=== PATIENT | male | born 1955 | race Caucasian/White ===

== ENCOUNTER 2017-03-19 22:29 | Emergency (ER) | payer MEDICARE, BC ==
[2017-03-19 22:46] VITALS: BP 130/64
--- NOTE | 2017-03-19 22:57 | EDM.PDOC ---
ED HPI GENERAL MEDICAL PROBLEM - General Chief Complaint: Upper Extremity Injury/Pain Stated Complaint: SHOULDER PAIN Time Seen by Provider: 03/19/17 22:51 Source of Information: Reports: Patient History Limitations: Reports: No Limitations - History of Present Illness INITIAL COMMENTS - FREE TEXT/NARRATIVE: This 62 yo male patient reports to the ED with a 2 day history of right shoulder and neck pain. The patient denies any acute injury or fall. The patient reports his symptoms started Thursday (03/17/17) and got much worse this evening. The patient reports he has not been seen in the clinic for these symptoms, but has been taking ibuprofen. The patient reports similar symptoms in his left shoulder years ago that went away on its own. 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 Right Clavicle Pain Score (Numeric/FACES): 10 - Related Data Allergies Allergy/AdvReac Type Severity Reaction Status Date / Time cephalexin Allergy Itching Verified 03/19/17 22:46 corn Allergy Rash Verified 03/19/17 22:46 doxycycline Allergy Rash Verified 03/19/17 22:46 fluconazole [From Diflucan] Allergy Rash Verified 03/19/17 22:46 house dust Allergy Shortness Verified 03/19/17 22:46 of Breath lorazepam [From Ativan] Allergy Rash Verified 03/19/17 22:46 Penicillins Allergy Rash Verified 03/19/17 22:46 tramadol HCl [From Ultram] Allergy Rash Verified 03/19/17 22:46 tree nut Allergy Shortness Verified 03/19/17 22:46 of Breath zolpidem tartrate Allergy Hallucinati Verified 03/19/17 22:46 [From Ambien] ons Home Meds: Home Meds ALPRAZolam [Xanax] 0.5 mg PO BID 08/01/13 [History] Albuterol [Proventil HFA] 2 puff INH Q4H PRN 08/01/13 [History] Albuterol [Proventil Neb Soln] 0.63 mg NEB Q4HRRT 08/01/13 [History] Aspirin [Adult Low Dose Aspirin EC] 81 mg PO BEDTIME 08/01/13 [History] Calcium Carbonate/Vitamin D3 [Calcium 600 + Vit D 400] 1 tab PO BEDTIME [History] Digoxin [Lanoxin] 250 mcg PO DAILY 08/01/13 [History] Diltiazem HCl [Diltiazem 24Hr ER] 360 mg PO DAILY 08/01/13 [History] Escitalopram [Lexapro] 20 mg PO DAILY 08/01/13 [History] Furosemide [Lasix] 40 mg PO ASDIRECTED PRN 08/01/13 [History] Metolazone [Zaroxolyn] 10 mg PO DAILY PRN 08/01/13 [History] Montelukast [Singulair] 10 mg PO BEDTIME 08/01/13 [History] Omeprazole [Prilosec] 20 mg PO DAILY 08/01/13 [History] traZODone HCl [Trazodone HCl] 50 mg PO BEDTIME 08/01/13 [History] Lidocaine/Prilocaine [Emla Cream] 1 squirt TOP ASDIRECTED PRN 03/12/15 [History] Albuterol/Ipratropium [DuoNeb 3.0-0.5 MG/3 ML] 1 vial INH Q4H 08/27/15 [History] Insulin Detemir [Levemir] 90 unit SUBCUT BEDTIME 09/17/15 [History] Insulin Aspart [NovoLOG] 22 units SQ TIDMEALS 01/21/16 [History] Sulfamethoxazole/Trimethoprim [Bactrim 400-80 MG] 2 tab PO BID PRN 11/10/16 [ History] Clotrimazole/Betamethasone Dip [Lotrisone Cream] 1 squirt TOP ASDIRECTED [History] Ipratropium [Atrovent] 1 vial INH Q4H 02/02/17 [History] Past Medical History HEENT History: Reports: Cataract, Hard of Hearing, Impaired Vision, Other (See Below) Other HEENT History: Mastoid infection. Chronic right eye infection (red/watery ) ? allergy related. Cardiovascular History: Reports: Afib, CAD, Heart Failure, High Cholesterol, Hypertension, SOB on Exertion, Other (See Below) Other Cardiovascular History: Vascular access/Port right chest Respiratory History: Reports: Asthma, Bronchitis, Recurrent, COPD, Pneumonia, Recurrent Other Respiratory History: Uses o2 at 3L per nc at all times Gastrointestinal History: Reports: GERD Genitourinary History: Reports: None Musculoskeletal History: Reports: Arthritis Neurological History: Reports: Neuropathy, Diabetic Psychiatric History: Reports: Anxiety, Depression Endocrine/Metabolic History: Reports: Diabetes, Type II Hematologic History: Reports: Other (See Below) Other Hematologic History: Common Variable immune Deficiency Immunologic History: Reports: Immunosuppression Oncologic (Cancer) History: Reports: None Dermatologic History: Reports: Psoriasis - Infectious Disease History Infectious Disease History: Reports: Other (See Below) Other Infectious Disease History: unknown - Past Surgical History Head Surgeries/Procedures: Reports: None HEENT Surgical History: Reports: Adenoidectomy, Cataract Surgery, Tonsillectomy GI Surgical History: Reports: None Male Surgical History: Reports: Circumcision Neurological Surgical History: Reports: None Oncologic Surgical History: Reports: None Dermatological Surgical History: Reports: None Social & Family History - Family History Family Medical History: Noncontributory - Tobacco Use Smoking Status *Q: Current Every Day Smoker Years of Tobacco use: 50 Packs/Tins Daily: 1 Used Tobacco, but Quit: Yes Month Tobacco Last Used: 2015 Second Hand Smoke Exposure: No - Caffeine Use Caffeine Use: Reports: Soda Other Caffeine Use: 6-8 12 OZ CANS - Alcohol Use Days Per Week of Alcohol Use: 0 Number of Drinks Per Day: 0 Total Drinks Per Week: 0 - Recreational Drug Use Recreational Drug Use: No Drug Use in Last 12 Months: No - Living Situation & Occupation Living situation: Reports: Occupation: Disabled Review of Systems - Review of Systems Review Of Systems: ROS reveals no pertinent complaints other than HPI. ED EXAM, GENERAL - Physical Exam Exam: See Below Exam Limited By: No Limitations General Appearance: Alert, Moderate Distress, Obese Eye Exam: Bilateral Eye: EOMI, Normal Inspection, PERRL Ears: Normal External Exam, Normal Canal, Hearing Grossly Normal, Normal TMs Nose: Normal Inspection, Normal Mucosa, No Blood Throat/Mouth: Normal Inspection, Normal Lips, Normal Teeth, Normal Gums, Normal Oropharynx, Normal Voice, No Airway Compromise Head: Atraumatic, Normocephalic Neck: Normal Inspection, Supple, Non-Tender, Full Range of Motion Respiratory/Chest: No Respiratory Distress, Lungs Clear, Normal Breath Sounds, No Accessory Muscle Use, Chest Non-Tender Cardiovascular: Normal Peripheral Pulses, Regular Rate, Rhythm, No Edema, No Gallop, No JVD, No Murmur, No Rub GI/Abdominal: Normal Bowel Sounds, Soft, Non-Tender, No Organomegaly, No Distention, No Abnormal Bruit, No Mass (Male) Exam: Deferred Rectal (Males) Exam: Deferred Back Exam: Normal Inspection, Full Range of Motion, NT Extremities: Normal Inspection, Normal Range of Motion, Limited Range of Motion (due to increased pain), Other (tender right shoulder) Neurological: Alert, Oriented, CN II-XII Intact, Normal Cognition, Normal Gait, Normal Reflexes, No Motor/Sensory Deficits Psychiatric: Normal Affect, Normal Mood Skin Exam: Warm, Dry, Intact, Normal Color, No Rash Lymphatic: No Adenopathy Course - Vital Signs Last Recorded V/S: Last Vital Signs Temp 36.8 C 03/19/17 22:41 Pulse 77 03/19/17 22:41 Resp 20 03/19/17 22:41 BP 130/64 03/19/17 22:41 Pulse Ox 92 L 03/19/17 22:41 - Orders/Labs/Meds Orders: Active Orders 24 hr Category Date Time Status Orphenadrine [Norflex] Med 03/19/17 23:00 Active 60 mg IM Q12H Medication Orders Orphenadrine Citrate (Norflex) 60 mg IM Q12H [facility] Last Admin: 03/19/17 23:18 Dose: 60 mg Meds: Medications Generic Name Dose Route Start Last Admin Trade Name Freq PRN Reason Stop Dose Admin Orphenadrine Citrate 60 mg 03/19/17 23:00 03/19/17 23:18 Norflex IM 60 mg Q12H [place] Administration Discontinued Medications Generic Name Dose Route Start Last Admin Trade Name Freq PRN Reason Stop Dose Admin Ketorolac Tromethamine 60 mg 03/19/17 22:58 03/19/17 23:18 Toradol IM 03/19/17 22:59 60 mg ONETIME ONE Administration Departure - Departure Time of Disposition: 23:40 Disposition: Home, Self-Care 01 Condition: Fair Clinical Impression: Neck muscle strain Qualifiers: Encounter type: initial encounter Qualified Code(s): S16.1XXA - Strain of muscle, fascia and tendon at neck level, initial encounter - Discharge Information Instructions: Cervical Sprain, [id number] Forms: ED Department Discharge Care Plan Goals: The patient was advised of the examination results during the visit. The patient was given an injection of Toradol and Norflex while in the ED. The patient was discharged with a Toradol (10 mg) #1 to take in 6 hours and a script for Toradol (10 mg) #18 to take 1 by mouth every 6 hours and Flexeril ( 10 mg) #10 to take 1 by mouth at bedtime as needed. If the patient has any additional symptoms or concerns, the patient should follow-up with his primary care facility or return to the ED. - My Orders Last 24 Hours: My Active Orders 03/19/17 23:00 Orphenadrine [Norflex] 60 mg IM Q12H - Assessment/Plan Last 24 Hours: My Active Orders 03/19/17 23:00 Orphenadrine [Norflex] 60 mg IM Q12H
[2017-03-19] MEDS ORDERED: Ketorolac 30 MG/ML SDV IM ONE (22:58)
[2017-03-19] MEDS ORDERED: Ketorolac 10 MG Tab ONE (23:42)
[2017-03-19] MEDS ORDERED: Ketorolac 10 MG Tab PO ONE (23:42)
== END 2017-03-19 23:45 | disposition home or self-care (01) ==
LOC: DL.ED 22:29
DX: S16.1XXA Strain of muscle, fascia and tendon at neck level, initial encounter (principal); I48.91 Unspecified atrial fibrillation; I25.10 Atherosclerotic heart disease of native coronary artery without angina pectoris; E78.00 Pure hypercholesterolemia, unspecified; I11.0 Hypertensive heart disease with heart failure; I50.9 Heart failure, unspecified; J44.9 Chronic obstructive pulmonary disease, unspecified; Z87.01 Personal history of pneumonia (recurrent); K21.9 Gastro-esophageal reflux disease without esophagitis; E11.40 Type 2 diabetes mellitus with diabetic neuropathy, unspecified; L40.9 Psoriasis, unspecified; F41.9 Anxiety disorder, unspecified; X58.XXXA Exposure to other specified factors, initial encounter; F32.9 Major depressive disorder, single episode, unspecified; M19.90 Unspecified osteoarthritis, unspecified site; F17.210 Nicotine dependence, cigarettes, uncomplicated; Z88.8 Allergy status to other drugs, medicaments and biological substances; Z88.0 Allergy status to penicillin; Z88.1 Allergy status to other antibiotic agents; Z79.899 Other long term (current) drug therapy; Z91.018 Allergy to other foods; Z79.4 Long term (current) use of insulin; Z79.82 Long term (current) use of aspirin
CPT/HCPCS: 96372; 96374; 99283; A9270; J1885; J2360